=== PATIENT | male | born 1995 | race Caucasian/White ===

== ENCOUNTER 2017-06-20 02:44 | Emergency (ER) | payer OTHER, SELFPAY ==
[2017-06-20 02:45] VITALS: BP 148/105; PULSE 103; RESP 16; TEMP 37.3; O2SAT 97; BMI 26.4
--- NOTE | 2017-06-20 03:49 | ED.DEP ---
ED Disposition - Plan for ED Patient: Chief Complaint: Eye Problem Instructions: ED Conjunctivitis Bacterial Referrals: Adam Patel DO [Primary Care Provider] -
--- NOTE | 2017-06-20 03:52 | ED.VISSUMM ---
- ER Visit Summary Date of Service: 06/20/17 Chief Complaint: Right eye redness History of Present Illness: The patient is a 22 M presenting with right eye redness. He states this began yesterday. He has pain in his right eye along with redness. He denies foreign body sensation. He does not wear contacts. No vision changes. Denies injury. Denies fever. He complains of rhinorrhea. No other complaints. Physical Examination: Vitals are stable. Patient is afebrile. Alert no acute distress. HEENT exam right conjunctival injection, PERRLA, EOMI. Neck is supple. Lungs are clear and equal bilaterally. Heart is regular rate and rhythm. Skin is warm and dry. No focal neurologic deficit. Remainder of exam is unremarkable. Emergency Department Course and Treatment: Visual acuity is 20/25 OS, 20/25 OD. Tetracaine was instilled into the right eye. This improved his symptoms. There was no dye uptake with fluorescein. He was given bacitracin ophthalmic ointment. Advised frequent handwashing. Advised to follow-up with primary care physician. Advised return to ED if worsening complaints. Disposition: Discharge home Impression: Conjunctivitis, right eye This note was generated with [employer] dictation software. It may contain incorrect words, spelling, and punctuation that were not noted in review of the chart prior to signing ED Disposition - Plan for ED Patient: Chief Complaint: Eye Problem Instructions: ED Conjunctivitis Bacterial Referrals: Adam Patel DO [Primary Care Provider] -
[2017-06-20 04:02] VITALS: RESP 16
[2017-06-20] MEDS: Tetracaine 0.5% Ophthalmic Bottle 1 DRP RIGHT EYE (04:02)
== END 2017-06-20 04:03 | disposition home or self-care (01) ==
LOC: ED 03:56
PROVIDERS: Emergency Provider Emergency Medicine; Family Provider Family Medicine; PCP Family Medicine
DX: H10.31 Unspecified acute conjunctivitis, right eye (principal)
CPT/HCPCS: 99282

== ENCOUNTER 2018-12-20 23:09 | Emergency (ER) | payer OTHER, SELFPAY ==
[2018-12-20 23:09] VITALS: BP 153/90; PULSE 114; RESP 16; TEMP 36.9; O2SAT 97; BMI 28.0
--- NOTE | 2018-12-20 23:20 | RAD_ITS ---
HISTORY: C/O LT ANTERIOR RIB PAIN AFTER PLAYING SOFTBALL COMPARISON: None TECHNIQUE: Rib series including PA chest and 4 views of the left ribs FINDINGS: No acute fracture. No consolidation, pleural effusion or pneumothorax. Acute rib fractures can be difficult to visualize radiographically. Follow-up as clinically warranted. RAD/Ribs Uni Min 3V w/PA Chest IMPRESSION: No acute rib fracture detected. at 2355 Reported and signed by: Deanna Mishra MD Electronically Signed: Deanna Mishra MD at 23:55 EDT Tel , Service support ,
--- NOTE | 2018-12-20 23:21 | ED.VIS.GEN ---
History of Present Illness Chief Complaint: Chest Other Narrative: Patient is a 23-year-old male who presents with left chest wall pain. He was playing softball all day today. When he went to throw a ball at about noon, 11 to 12 hours ago he fell onto his left ribs. He was having some pain but continued to play. He then had another injury later in the evening and complains of increased pain since that time. He has not tried any medications or supportive care. He is not short of breath. He otherwise denies recent illness. He denies medical history. Past Medical History - Allergies and Home Meds Allergies/Adverse Reactions: Allergies Penicillins [PCN] Allergy (Verified 12/20/18 23:11) Swelling Primary Care Physician: Adam Patel DO [Primary Care Provider] - Past Medical History: None Smoking Status: Never smoker Review of Systems All systems negative except as indicated General: Denies: Fever Cardiovascular: Reports: Chest pain Respiratory: Denies: Dyspnea Gastrointestinal: Denies: Vomiting Physical Exam Vital Signs/Narrative: Vital Signs Temp Pulse Resp BP Pulse Ox 12/20/18 23:09 98.5 F 114 H 16 153/90 H 97 Inital Vital Signs reviewed: Yes General: Well nourished, Well developed Head: Normocephalic Eyes: EOMI ENT: Moist mucous membranes Neck: Supple Cardiovascular: - - Heart is regular tachycardia Respiratory: - - Equal breath sounds bilaterally lungs are clear to auscultation patient does have left lower chest wall tenderness I do not see any ecchymosis abrasions or soft tissue swelling Abdomen: Soft, Nontender Skin: Normal color Neurological: Alert, Oriented x3, Normal Strength, Normal Sensation Psychological: Normal affect Diagnostic/Tx/Re-eval - Medical Decision Making Rib series was obtained with a PA chest. No rib fracture identified. No acute process. Patient was given naproxen here. He was advised on supportive care including anti-inflammatories and ice. He understands to return for new or worsening symptoms and was discharged. ED Disposition - Plan for ED Patient: Disposition: Home or Assisted Living Diagnosis: Chest wall contusion Instructions: Chest Wall Contusion Referrals: Adam Patel DO [Primary Care Provider] -
[2018-12-20] MEDS: Naproxen 500 MG Tablet PO (23:24)
[2018-12-21 00:06] VITALS: BP 129/77; PULSE 68; RESP 18
== END 2018-12-21 00:07 | disposition home or self-care (01) ==
PROVIDERS: Emergency Provider Emergency Medicine; Family Provider Family Medicine; PCP Family Medicine
DX: S20.212A Contusion of left front wall of thorax, initial encounter (principal); W18.39XA Other fall on same level, initial encounter; Y93.64 Activity, baseball
CPT/HCPCS: 71101; 99283

== ENCOUNTER 2019-03-25 10:07 | Emergency (ER) | payer OTHER, SELFPAY ==
[2019-01-06 15:04] VITALS: BMI 28.0
[2019-03-25 10:07] VITALS: BP 153/102; PULSE 75; RESP 14; TEMP 36.8; O2SAT 100
--- NOTE | 2019-03-25 10:29 | EKG12_ITS ---
Test Reason : CP Blood Pressure : / mmHG Vent. Rate : 078 BPM Atrial Rate : 078 BPM P-R Int : 160 ms QRS Dur : 094 ms QT Int : 374 ms P-R-T Axes : 048 020 042 degrees QTc Int : 426 ms Normal sinus rhythm with sinus arrhythmia Normal ECG Confirmed by RUSS BANUELOS, DEANNE ([id number]), online editor ERNESTO HAMMOND ([id number]) on 03/30/2019 11:45:07 AM Referred By: RAQUEL/ZANE Confirmed By:PATRICIA SOLANO MD
--- NOTE | 2019-03-25 10:29 | RAD_ITS ---
STUDY: X-RAY CHEST REASON FOR EXAM: Male, 23 years old. Chest pain. TECHNIQUE: PA and lateral views of the chest. COMPARISON: Comparison is made with prior study dated December 20, 2018. FINDINGS: The lungs are clear and expanded. There is no demonstrated pleural abnormality. Normal size heart. Normal mediastinum and sixto. Normal visualized pulmonary arteries. Normal visualized aortic arch and descending thoracic aorta. Normal visualized thoracic spine. Normal visualized ribs, clavicles, and shoulders. There is no demonstrated abnormality of the visualized soft tissue structures of the upper abdomen. RAD/Chest PA and Lateral IMPRESSION: Normal x-ray examination of the chest. Electronically Signed: Dragan Tian, at 11:18 EST , Service support ,
--- NOTE | 2019-03-25 10:44 | ED.DCSUM_ITS ---
History of Present Illness Chief Complaint: Chest Pain Informant: Patient Onset: Days - 2 Activity at onset: Rest Timing: Continuous Quality: - - throbbing Location: Substernal - central chest. no radiation. Current Severity: Mild Maximum Severity: Moderate Worsened By: Nothing Relieved By: - - exertion, lying prone Associated Symptoms: Lightheadedness - today suddenly, w/ worsening of the already-existing chest discomfort. Negative for: Nausea, Vomiting, Diaphoresis, Dyspnea, Cough, Fever, Palpitations Narrative: Patient has had this chest discomfort pretty much constantly for the past 2 days, he states when he is exerting himself and doing things he really does not notice it, but as soon as he rests he noticed that it is present. He suspects it is never going away since it started 2 days ago. It started gradually, nothing sudden and severe. No radiation. No back discomfort or near syncopal episodes until today he felt lightheaded at work, he was already on his feet which he spends most of his workday doing, and the chest discomfort worsened when he felt lightheaded. Now all of that is gone, it was relatively brief, the chest discomfort persists and is back to basically at baseline for the past 2 days and he has no other symptoms currently. Denies any recent travel, immobilization or hospitalization recently. He has had some surgeries in the past but nothing this year. No leg pain or swelling or history of DVT/PE. No significant family history of hereditary clotting disorders or heart disease that he knows of. Past Medical History - Allergies and Home Meds Allergies/Adverse Reactions: Allergies Penicillins [PCN] Allergy (Verified 03/25/19 10:11) Swelling Primary Care Physician: Adam Patel DO [Primary Care Provider] - 1 Week if not improving Past Medical History: None Surgical History: herniorrhaphy, - - knee Lives: With Family Smoking Status: Former smoker Drugs: None Review of Systems General: Reports: Malaise - lightheadedness earlier. Denies: Chills, Fever, Sweats Eyes: Denies: Visual changes - bilaterally, Diplopia ENT: Denies: Rhinorrhea, Sore throat Cardiovascular: Reports: Chest pain. Denies: Palpitations Respiratory: Denies: Dyspnea, Cough, Dyspnea on exertion Gastrointestinal: Denies: Abdominal pain, Nausea, Vomiting, Diarrhea, Melena, Hematochezia Genitourinary: Denies: Dysuria, Hematuria, Frequency Musculoskeletal: Denies: Back pain, Swelling, Extremity Pain Skin: Denies: Rash, Wounds Neurological: Denies: Headache, Weakness, Numbness Physical Exam Vital Signs/Narrative: Vital Signs Temp Pulse Resp BP Pulse Ox 03/25/19 10:07 98.3 F 75 14 153/102 H 100 Inital Vital Signs reviewed: Yes General: Well nourished, Well developed, No Acute Distress - well-appearing Head: Normocephalic, Atraumatic Eyes: Perrl, EOMI ENT: Moist mucous membranes, No rhinorrhea Neck: Supple, Nontender, No lymphadenopathy, No JVD Cardiovascular: Regular rate, Regular rhythm, No murmurs Respiratory: No distress, CTA bilaterally, Chest nontender Abdomen: Soft, Nontender, Nondistended, Normal bowel sounds Back: Nontender, Normal Inspection Extremities: Nontender, No edema. Negative for: Calf Tenderness Skin: Normal color, No rash, No Trauma Neurological: Alert, Oriented x3, Cranial nerves II-XII grossly intact, Normal Strength, Normal Sensation, Normal Gait Psychological: Normal affect, Normal Mood Diagnostic/Tx/Re-eval Impressions Chest X-Ray 03/25/19 10:29 IMPRESSION: Normal x-ray examination of the chest. Electronically Signed: Dragan Asmita, at 11:18 EST , Service support , 03/25/19 10:29 Chest PA and Lateral [RAD] Stat Laboratory Results 03/25/19 03/25/19 10:10 10:10 WBC 5.4 RBC 5.54 Hgb 15.9 Hct 46.8 MCV 84.5 MCH 28.7 MCHC 34.0 RDW Std Deviation 38.1 RDW Coeff of Ketty 12.5 Plt Count 280 MPV 10.0 Immature Gran % (Auto) 0.400 Neut % (Auto) 54.6 Lymph % (Auto) 32.1 [place] % (Auto) 9.0 Eos % (Auto) 3.5 Baso % (Auto) 0.4 Absolute Neuts (auto) 3.0 Absolute Lymphs (auto) 1.74 Nucleated RBC % 0 Sodium 140 Potassium 4.1 Chloride 105 Carbon Dioxide 29.0 Anion Gap 6 BUN 16 Creatinine 1.12 Estim Creat Clear Calc 100.82 Est GFR (MDRD) Af Amer 102 Est GFR (MDRD) Non-Af 84 BUN/Creatinine Ratio 14.3 Glucose 104 Calcium 8.9 Troponin I < 0.015 - Rhythm Strip Rhythm Strip: Sinus Rhythm Rate: 78 Ectopy: None - EKG Initial EKG Interpretation: Sinus Rhythm, No Acute Injury Pattern - normal EKG Treatment: Toradol IV, GI Cocktail JAMIE Risk: No Positive JAMIE Elements Score: 0 - Medical Decision Making Work-up is unremarkable. I suspect GI etiology is possible, so he was given a GI cocktail and did not have improvement. He was treated with IV Toradol, and had improvement rather quickly afterwards. His medical screening exam is benign, his vital signs are normal, his PERC score is 0, and although I do not have explanation for his symptoms, we have ruled out emergent medical conditions and I feel he is stable for discharge home. Advised to use [id number] ibuprofen as needed, follow-up with his doctor for persistent symptoms. He is comfortable with this plan. ED Disposition - Plan for ED Patient: Disposition: Home or Assisted Living Diagnosis: Chest pain, unspecified Instructions: CHEST PAIN, NonCardiac Referrals: Adam Patel, DO [Primary Care Provider] - 1 Week if not improving
[2019-03-25 10:54] LABS: Absolute Lymphocyte Count 1.74 X10^3/uL (0.83-4.51); Basophil# 0.02 X10^3/uL; Basophil% 0.4 % (0-1); Eosinophil# 0.19 X10^3/uL; Eosinophils% 3.5 % (0-5); Hematocrit 46.8 % (40-54); Hemoglobin 15.9 g/dL (13.0-16.5); Lymphocyte # 1.74 X10^3/ul (4.0); Lymphocyte % 32.1 % (19-41); Mean Corpuscular Hgb 28.7 pg (27.0-32.0); Mean Corpuscular Volume 84.5 fL (80-94); Monocyte# 0.49 X10^3/uL; NRBC Flagged by Analyzer 0 % (0-5); Neutrophil # 2.96 X10^3/uL (2.7-7.7); Neutrophil % 54.6 % (47-70); Platelet Count 280 K/mm3 (150-450); RBC Distribution Width CV 12.5 % (11.6-14.6); RBC Distribution Width SD 38.1 fl (35.1-43.9); Red Blood Count 5.54 M/mm3 (4.6-6.2); White Blood Count 5.4 K/mm3 (4.4-11.0)
[2019-03-25 11:09] LABS: Anion Gap 6 (5-15); BUN 16 mg/dL (7-18); BUN/Creat Ratio 14.3 RATIO (10-20); Calcium,Total 8.9 mg/dL (8.5-10.1); Chloride 105 mmol/L (98-107); Creatinine, Serum 1.12 mg/dL (0.70-1.30); EST Glomerular Filtration Rate 84 mL/min (>60); Est Glom Filt Rate - Afr Amer 102 mL/min (>60); Estimated Creatinine Clearance 100.82 ml/min; Glucose 104 mg/dL (74-106); Potassium 4.1 mmol/L (3.5-5.1); Sodium Level 140 mmol/L (136-145)
[2019-03-25 11:17] VITALS: BP 135/80; PULSE 70; RESP 15; O2SAT 97
[2019-03-25] MEDS: Mag Hydrox/Al Hydrox/Simeth 30 ML UDC PO (11:46)
[2019-03-25] MEDS: Ketorolac 30 MG/ML Syringe IV (12:23)
[2019-03-25 12:41] VITALS: BP 110/75; PULSE 59; RESP 18; O2SAT 99
== END 2019-03-25 12:41 | disposition home or self-care (01) ==
PROVIDERS: Emergency Provider Emergency Medicine; Family Provider Family Medicine; PCP Family Medicine
DX: R07.9 Chest pain, unspecified (principal); Z87.891 Personal history of nicotine dependence
CPT/HCPCS: 36415; 71046; 80048; 84484; 85025; 93005; 96374; 99285; J7030; A4216

== ENCOUNTER → 2021-01-16 15:37 | Outpatient (CLI) | payer OTHER, SELFPAY | PROVIDERS: PCP Family Medicine; Visit Provider Physician Assistant | DX: U07.1 COVID-19 (principal) | CPT/HCPCS: 87635; U0005; U0003 ==